=== PATIENT | female | born 1965 | race African-American/Black ===

== ENCOUNTER → 2020-01-03 11:10 | Outpatient (CLI) | payer MEDICARE, OTHER ==
[2020-01-03 11:47] LABS: HEMATOCRIT 39.7 % (36.0-48.0); HEMOGLOBIN 13.2 g/dL (12-16); MCH 30.9 pg (26.0-34.0); MCHC 33.2 g/dL (31.0-37.0); MEAN PLATELET VOLUME 9.9 fL (7.4-10.4); PLATELET COUNT 241 10x3/uL (130-400); RBC 4.27 10x6/uL (4.00-5.40); WBC 4.7 10x3/uL (4.8-10.8)
[2020-01-03 12:14] LABS: ALBUMIN 3.8 g/dL (3.4-5.0); ALKALINE PHOSPHATASE 82 U/L (30-120); ALT (SGPT) 50 U/L (10-68); BILIRUBIN - TOTAL 0.15 mg/dL (0.2-1.3); CALC OSMOLALITY 274 mosm/kg (275-300); CALCIUM 8.9 mg/dL (8.5-10.1); CARBAMAZEPINE (TEGRETOL) 4.1 ug/mL (4.0-12.0); CARBON DIOXIDE 28.5 mmol/L (21.0-32.0); CHLORIDE - SERUM 103 mmol/L (98-107); CREATININE - SERUM 0.8 mg/dL (0.6-1.3); GLUCOSE 76 mg/dL (74-106); PHENYTOIN (DILANTIN) 23.6 ug/mL (10.0-20.0); POTASSIUM - SERUM 4.1 mmol/L (3.5-5.1); PROTEIN - SERUM 8.3 g/dL (6.4-8.2); SODIUM 138 mmol/L (136-145); UREA NITROGEN 13 mg/dL (7-18); VALPROIC ACID (DEPAKOTE) 90.6 ug/mL (50.0-100.0); eGFR NON AFRICAN AMERICAN 79 mL/min (90-120)
[2020-01-03 13:45] LABS: EOSINOPHILS 1 % (0-7); LYMPHOCYTES 57 % (15-50); MONOCYTES 8 % (2-11); NEUTROPHILS 34 % (40-80); PLATELET ESTIMATE NORMAL
[2020-01-03 13:46] LABS: ANISOCYTOSIS OCC; ROULEAUX OCC
== END | disposition home or self-care (01) ==
LOC: D.LAB 11:10
PROVIDERS: ATTEND Psychiatry & Neurology Neurology
DX: R56.9 Unspecified convulsions (principal)